=== PATIENT | male | born 1930 | race Caucasian/White ===

== ENCOUNTER 2018-02-17 11:24 | Day surgery (SDC) | payer MEDICARE, OTHER ==
[~2018-02-17 11:24] MED LIST: AMLO5TAB2 PO; APIX5TAB PO; ASPI1TAB57 PO; CALC1TAB87 PO; COEN1CAP17 PO; DILT120T PO; METO1TAB43 PO; MULT-65 PO; OCUVTAB4 PO; SIMV10TA PO; TIMO0.5S4 EACH EYE
[2018-02-17] MEDS ORDERED: TIMO0.5S30 EACH EYE (11:52)
[2018-02-17] MEDS ORDERED: AMIO200T PO (11:52)
[2018-02-17] MEDS ORDERED: DILT120C50 PO (11:52)
[2018-02-17] MEDS ORDERED: POVIDONE IODINE 5% (ANTISEPSIS KIT) 4 APPLICATIONS EACH NARE PRN (12:00)
[2018-02-17] MEDS ORDERED: METOPROLOL TARTRATE 25 MG TAB PO PRN (12:00)
[2018-02-17] MEDS ORDERED: LACTATED RINGER'S 1000 ML IV PRN (12:00)
[2018-02-17] MEDS ORDERED: SODIUM CHLORID 0.9% 500 ML IV PRN (12:00)
[2018-02-17] MEDS ORDERED: CHLORHEXIDINE GLUCONATE 2 % 1 PACK (2 CLOTHS) TOPICAL PRN (12:00)
[2018-02-17] MEDS ORDERED: PROPOFOL 200 MG/20 ML AMP ONE (13:41)
--- NOTE | 2018-02-17 14:35 | MP ---
cc: Keagan Farris MD DATE OF OPERATION: 02/17/2018 PROCEDURE PERFORMED: Transesophageal echo. INDICATION: Afib, mitral regurgitation, aortic sclerosis. CONSENT: Full informed consent was obtained prior to procedure. Risk of , bleeding, stroke, perforation, aspiration, or other unforeseen complications reviewed. The patient appeared to fully understand the risks. PROCEDURE SUMMARY: The patient was prepped and draped in usual manner. Patient was anesthetized as per the anesthesia department. A full SANDRA was performed. FINDINGS: Left atrial appendage showed some evidence of "smoke", but no obvious thrombus. The left atrium was moderate size. No obvious thrombus seen. The mitral valve was thickened and calcified with trace to mild mitral regurgitation. Aortic valve was trileaflet. It was also calcified with no significant aortic stenosis. The tricuspid valve normal. LV function was normal. RV and RA chamber was not significantly dilated. Aorta was visualized to 30 cm. CONCLUSION: Mild mitral regurgitation. No evidence of left atrial appendage thrombus. PLAN: Proceed with cardioversion. MD YAIR Gandhi/GUILLE , 02:18 PM , 02:33 PM
--- NOTE | 2018-02-17 14:38 | MP ---
cc: Keagan Farris MD, Carlos J MD DATE OF OPERATION: 02/17/2018 PROCEDURE PREFORMED: Cardioversion. INDICATION: Atrial fibrillation. CONSENT: Full informed consent was obtained prior to procedure. Risks of , bleeding, myocardial infarction, perforation, aspiration, stroke, or unforeseen complications reviewed. The patient appeared to fully understand the risks. DESCRIPTION OF PROCEDURE: The patient was draped and prepped in usual manner. The patient had a full SANDRA performed. Following the SANDRA, the patient underwent a 200 joule synchronized cardioversion, which converted him from atrial fibrillation to sinus rhythm. CONCLUSION: Successful cardioversion from atrial fibrillation to sinus rhythm. PLAN: We will plan to discharge the patient later today. Followup with the undersigned in due course and Dr. Rodríguez. MD YAIR Gandhi/GUILLE , 02:20 PM , 02:36 PM
--- NOTE | 2018-02-18 22:57 | EKG ---
Date Performed: 02/17/2018 Time Performed: 14:41:28 PTAGE: 87 years EKG: Sinus bradycardia. Prolonged QT interval Septal T wave changes are nonspecific Borderline E CG PREVIOUS TRACING : 02/17/2018 11.38 Compared to previous tracing, a fib no longer present DOCTOR: Josh De Interpretating Date/Time 02/18/2018 22:55:11
--- NOTE | 2018-02-18 23:05 | EKG ---
Date Performed: 02/17/2018 Time Performed: 11:38:04 PTAGE: 87 years EKG: Atrial fibrillation Abnormal ECG NO PREVIOUS TRACING DOCTOR: Josh De Interpretating Date/Time 02/18/2018 23:03:57
== END 2018-02-17 15:16 | disposition home or self-care (01) ==
LOC: HDOC 11:24 → HDIC 11:24 → HDOC 15:16
PROVIDERS: ATTEND Internal Medicine Cardiovascular Disease
DX: I48.91 Unspecified atrial fibrillation (principal); I34.0 Nonrheumatic mitral (valve) insufficiency; I70.0 Atherosclerosis of aorta; I10 Essential (primary) hypertension
CPT/HCPCS: 92960; 93005